=== PATIENT | male | born 1945 | race Caucasian/White ===

== ENCOUNTER 2017-04-28 08:52 | Day surgery (SDC) | payer OTHER ==
[2017-04-28] MEDS ORDERED: TETRACAINE 0.5% OPHTH 1 DOSE AFFEYE ONE ×2 (09:45→13:21)
[2017-04-28] MEDS ORDERED: VIGAMOX 0.5% OPHTH 1 DOSE AFFEYE ONE ×5 (09:50→13:43)
[2017-04-28] MEDS ORDERED: NS 500 ML IV 500 ML IV ONE (09:58)
[2017-04-28] MEDS ORDERED: PROLENSA OPHTH 1 DOSE AFFEYE ONE (10:01)
[2017-04-28] MEDS ORDERED: ALPHAGAN-P OPHTH 1 DOSE AFFEYE ONE (10:02)
[2017-04-28] MEDS ORDERED: CYCLOGYL 1% OPHTH 1 DOSE OP ONE ×3 (10:03→10:05)
[2017-04-28] MEDS ORDERED: MYDRIACIL OPHTH 1 DOSE AFFEYE ONE ×3 (10:03→10:05)
[2017-04-28] MEDS ORDERED: AK-DILATE 2.5% OPHTH 1 DOSE OP ONE ×3 (10:03→10:05)
[2017-04-28] MEDS ORDERED: DIPRIVAN VIAL ONE (10:27)
[2017-04-28] MEDS ORDERED: BETADINE OPHTH SOLN 5% EACHEYE ONE (13:21)
[2017-04-28] MEDS ORDERED: BSS OPHTH (PLAIN) 500 ML with VANCOMYCIN HCL 500 MG VIAL 25 MG, ADRENALINE CHL INJ 1 MG IR ONE ×3 (13:32)
[2017-04-28] MEDS ORDERED: XYLOCAINE-MPF 1% IJ ONE (13:32)
[2017-04-28] MEDS ORDERED: DUOVISC IO ONE (13:32)
[2017-04-28] MEDS ORDERED: ADRENALINE CHL INJ IJ ONE (13:32)
[2017-04-28 14:02] VITALS: BP 138/74
== END 2017-04-28 14:03 | disposition home or self-care (01) ==
LOC: SURG1 08:52
PROVIDERS: ATTEND Ophthalmology
PROC: 08DK3ZZ Extraction of Left Lens, Percutaneous Approach (ICD-10-PCS; principal; 2017-04-28 15:15)
PROC: 08RK3JZ Replacement of Left Lens with Synthetic Substitute, Percutaneous Approach (ICD-10-PCS; principal; 2017-04-28 15:15)
DX: H25.12 Age-related nuclear cataract, left eye (principal); H25.012 Cortical age-related cataract, left eye; H25.042 Posterior subcapsular polar age-related cataract, left eye
CPT/HCPCS: 99100; A4217; J0170; J3370; J3490